=== PATIENT | male | born 2000 | race Asian ===

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

== ENCOUNTER 2024-03-28 09:19 | Emergency (ER) | payer OTHER ==
[~2024-03-28] VITALS: Ht 170.2 cm; Wt 81.8 kg
[2024-03-28 09:23] VITALS: BP 113/64; PULSE 95; RESP 20; TEMP 98.5; O2SAT 99
[2024-03-28 09:33] LABS: COVID AG,FIA SOURCE NASAL SWAB
[2024-03-28 09:54] LABS: SARS-COV2 (COVID) ANTIGEN,FIA Negative (Negative)
[2024-03-28 09:55] LABS: INFLUENZA TYPE A POSITIVE FOR TYPE A (NEGATIVE)
[2024-03-28 09:57] LABS: INFLUENZA TYPE B NEGATIVE FOR TYPE B (NEGATIVE)
[2024-03-28] MEDS ORDERED: OSEL75CA45 PO (11:16)
== END 2024-03-28 11:26 | disposition home or self-care (01) ==
LOC: EMS 09:24
DX: J10.1 Influenza due to other identified influenza virus with other respiratory manifestations (principal); Z20.822 Contact with and (suspected) exposure to COVID-19
CPT/HCPCS: 87804; 99283